=== PATIENT | male | born 1955 | race Caucasian/White ===

== ENCOUNTER 2016-10-01 21:23 | Emergency (ER) | payer OTHER ==
[~2016-10-01] VITALS: Ht 180.3 cm; Wt 122.5 kg
--- NOTE | ~2016-10-01 | EKG ---
PATIENT: SOLOMON INTERIANO UNIT #: [id number] Ventricular Rate: 64 BPM Atrial Rate: 64 BPM P-R Interval: 180 ms QRS Duration: 98 ms Q-T Interval: 444 ms QTC Calculation(Bezet): 458 ms P [place]: 25 degrees Calculated R [place]: -42 degrees Calculated T [place]: -16 degrees Diagnosis Line: Normal sinus rhythm Diagnosis Line: Left axis deviation Diagnosis Line: Left anterior fascicular block Diagnosis Line: Incomplete right bundle branch block Diagnosis Line: Abnormal ECG Diagnosis Line: When compared with ECG of 06-APR-2016 02:44, Diagnosis Line: No significant change was found Diagnosis Line: Confirmed by DEEPIKA MCNEIL MD ([id number]) on Diagnosis Line: 10/04/2016 8:05:26 PM INTERPRETING MD: AIDE
--- NOTE | ~2016-10-01 | CR72 ---
[facility] A Service of [facility] & [facility] RADIOLOGY TEXT RESULTS PATIENT: SOLOMON INTERIANO LOCATION: [facility] : 51 UNIT #: [id number] AGE: [address]: Tristian Barkley MD SEX: M ORDER DR: [id number] [facility] [address] [place], [place] [address] [id number] E MR#: [id number] Acc #: [id number] NAME: SOLOMON INTERIANO : 1955 SEX: M STUDY DATE/TIME: 10/01/2016 22:33 UNIT: [facility] ROOM: STUDY DESCRIPTION: CR Chest Single View Portable Attending Physician: Tristian Barkley Ordering Physician: Ed Doctor [id number] [facility] Primary Care Physician: Primary Care Physician No MEDICAL IMAGING REPORT This report is preliminary unless electronic signature is present EXAM Portable chest, 10/01 22:33 hours INDICATION Shortness of air and headache today. History of hypertension. FINDINGS AP portable chest is compared with 01/09/2016. Cardiac and mediastinal contours are normal. The lung volumes remain low. There are some chronic opacities in the bases compatible with scarring. There is slight increased opacity in the right base that could reflect acute atelectasis or infiltrate. Correlate clinically. No pneumothorax. IMPRESSION Chronically low lung volumes with chronic scarring in the bases. Slight increase in alveolar density at the right base could reflect a superimposed acute atelectasis or early pneumonia. Correlate clinically. Dictated by... Jose G An Jr., M.D. THIS IS AN ELECTRONICALLY VERIFIED REPORT Jose G An Jr., M.D. at 10/02/2016 8:49 PM CHELI/samantha TD: 10/02/2016 09:10 JOB #: [id number] MEDICAL IMAGING REPORT Page 1 of 1 COPY
--- NOTE | ~2016-10-01 | CT71 ---
[facility] A Service of [facility] RADIOLOGY TEXT RESULTS PATIENT: SOLOMON INTERIANO LOCATION: [facility] : 51 UNIT #: [id number] AGE: [address]: Tristian Barkley MD SEX: M ORDER DR: [id number] [facility] [address] [place], [place] [address] [id number] E MR#: [id number] Acc #: [id number] NAME: SOLOMON INTERIANO : 1955 SEX: M STUDY DATE/TIME: 10/01/2016 22:41 UNIT: [facility] ROOM: STUDY DESCRIPTION: CT Head Wo Contrast Attending Physician: Tristian Barkley Ordering Physician: Ed Doctor [id number] [facility] Primary Care Physician: Primary Care Physician No MEDICAL IMAGING REPORT This report is preliminary unless electronic signature is present EXAM Head CT, 10/01 at 22:41 hours INDICATION Right side headache for the last 2 days. History of hypertension. TECHNIQUE This CT exam was performed with one or more of the following radiation dose reduction techniques: automatic exposure control, adjustment of mA and/or kV according to patient size, and iterative reconstruction. FINDINGS Axial images were obtained from the base to the vertex without contrast. Comparison made with 10/29/2008. There is generalized atrophy. Ventricular size and configuration are within normal limits. No acute infarct or hemorrhage. No masses are seen. Atherosclerotic calcifications are present in the carotid siphons. No skull fractures. The visualized paranasal sinuses and mastoid air cells are clear. IMPRESSION Generalized atrophy. No acute findings. Dictated by... Jose G An Jr., M.D. THIS IS AN ELECTRONICALLY VERIFIED REPORT Jose G An Jr., M.D. at 10/02/2016 8:49 PM CHELI/samantha TD: 10/02/2016 09:21 JOB #: [id number] [facility] A Service of [facility] RADIOLOGY TEXT RESULTS PATIENT: SOLOMON INTERIANO LOCATION: [facility] : 51 UNIT #: [id number] AGE: [address]: Tristian Barkley MD SEX: M ORDER DR: MEDICAL IMAGING REPORT Page 1 of 1 COPY
[~2016-10-01 21:23] MED LIST: ADVAIR; ADVAIR 2501 DISK W/D PO; ADVAIR 500-501 EACH IH; ADVAIR 5001 DISK W/D; ADVAIR PO; ALBUTEROL17 G1 IH; ALBUTEROL17 GM; ALBUTEROL17 GM INH; ASPIRIN PO; AUGMENTIN PO; AZITHROMYCIN250 MG PO; BAYER ASPIRIN325 M1 PO; DARVOCET-N 1001 TAB PO; DELTASONE20 MG; DILANTIN; DILANTIN KAPSE100 MG PO; DILANTIN PO; DOXYCYCLINE HY100 M1 PO; DUONEB 2.5-0.5 M3 ML; DUONEB 2.5-0.5 M3 ML NEB; FLAGYL PO; GUAIFENESIN PO; LASIX PO; LEVAQUIN PO; LOVAZA1 G PO; MIRALAX255 GM PO; PHARMACY; PREDNISONE PO; PRO AIR 90 MCG PO; SINGULAIR PO; VITAMIN B-125000 MCG PO
[2016-10-01 22:32] LABS: BASOPHIL# 0.1 X10e3 (0-0.3); BASOPHIL% 0.8 % (0-2.5); DIFF IND NO; EOSINOPHIL# 0.2 X10e3 (0-0.7); EOSINOPHIL% 2.7 % (0.0-7.0); HEMATOCRIT 36.6 % (38.0-50.0); HEMOGLOBIN 12.3 gm/dL (13.0-16.0); LYMPHOCYTE# 1.3 X10e3 (1.0-3.5); LYMPHOCYTE% 20.7 % (17.0-45.0); MEAN CELL VOLUME 97.4 FL (83-96); MEAN CORPUSCULAR HEMOGLOBIN 32.8 PG (28-34); MEAN CORPUSCULAR HGB CONC 33.7 g/dL (30-36); MONOCYTE# 0.4 X10e3 (0-1.0); MONOCYTE% 7.1 % (3.0-12.0); NEUTROPHIL# 4.2 X10e3 (1.5-7.1); NEUTROPHIL% 68.7 % (40-75); PLATELET COUNT 234 X10e3 (140-420); RED BLOOD COUNT 3.76 X10e (3.90-5.60); RED CELL DISTRIBUTION WIDTH 13.8 % (11.0-15.5); WHITE BLOOD COUNT 6.1 X10e3 (4.0-10.5)
[2016-10-01 22:44] LABS: POC - CKMB 2.4 ng/mL (0.0-7.9); POC - TROPONIN <0.05 ng/mL (<=0.05)
[2016-10-01 23:00] LABS: ALBUMIN SERUM 4.1 g/dL (3.5-5.0); ALKALINE PHOSPHATASE 69 U/L (32-92); ALT (SGPT) 17 U/L (10-40); AST (SGOT) 22 U/L (10-42); BILIRUBIN,TOTAL 0.3 mg/dL (0.2-2.0); BLOOD UREA NITROGEN 22 mg/dL (9-23); BUN/CREATININE RATIO 16.92; CALCIUM SERUM 8.9 mg/dL (8.4-10.2); CARBON DIOXIDE 30 mmol/L (22-31); CHLORIDE 102 mmol/L (100-111); CREATININE SERUM 1.3 mg/dL (0.6-1.4); GLOM FILT RATE Estimated 58.5 mL/min (>60); GLUCOSE FASTING 104 mg/dL (70-110); POTASSIUM 3.4 mmol/L (3.5-5.1); PROTEIN TOTAL SERUM 7.4 g/dL (6.0-8.3); SODIUM 136 mmol/L (135-145)
[2016-10-01 23:02] LABS: BILIRUBIN, DIRECT <0.1 mg/dL (0.0-0.2); BILIRUBIN,INDIRECT 0.2 mg/dL (0.0-0.9)
[2016-12-06] MEDS ORDERED: LOPRESSOR PO (16:47)
[2016-12-06] MEDS ORDERED: PRAVACHOL PO (16:47)
[2016-12-06] MEDS ORDERED: LASIX20 MG PO (16:47)
[2016-12-06] MEDS ORDERED: ASPIRIN EC81 M1 PO (16:47)
[2016-12-06] MEDS ORDERED: SINGULAIR PO (16:48)
[2016-12-06] MEDS ORDERED: THEO-DUR300 MG PO (16:48)
[2016-12-06] MEDS ORDERED: TRIGLIDE160 M1 PO (16:48)
[2016-12-06] MEDS ORDERED: VITAMIN D250000 UNIT PO (16:50)
[2016-12-06] MEDS ORDERED: FLONASE ALLERG9.9 ML (16:50)
[2016-12-06] MEDS ORDERED: ATROVENT HFA12.9 G1 INH (16:50)
[2016-12-06] MEDS ORDERED: ALBUTEROL17 GM INH (16:51)
[2016-12-06] MEDS ORDERED: BREO ELLIPTA 21 EACH INH (16:51)
== END 2016-10-02 00:25 | disposition home or self-care (01) ==
LOC: CED 21:23
PROVIDERS: Emergency Medicine
DX: J44.1 Chronic obstructive pulmonary disease with (acute) exacerbation (principal); I10 Essential (primary) hypertension; Z79.899 Other long term (current) drug therapy; Z79.82 Long term (current) use of aspirin
CPT/HCPCS: 36415; 70450; 71010; 80048; 80076; 82553; 83880; 84484; 85025; 93005; 94640; 96374; 99285; J2930

== ENCOUNTER 2016-11-18 13:53 | Emergency (ER) | payer OTHER ==
[~2016-11-18] VITALS: Ht 180.3 cm; Wt 127.9 kg
--- NOTE | ~2016-11-18 | EKG ---
PATIENT: SOLOMON INTERIANO UNIT #: [id number] Ventricular Rate: 95 BPM Atrial Rate: 95 BPM P-R Interval: 196 ms QRS Duration: 102 ms Q-T Interval: 364 ms QTC Calculation(Bezet): 457 ms P [place]: 28 degrees Calculated R [place]: -45 degrees Calculated T [place]: 33 degrees Diagnosis Line: Normal sinus rhythm Diagnosis Line: Left anterior fascicular block Diagnosis Line: Moderate voltage criteria for LVH, may be normal Diagnosis Line: variant Diagnosis Line: Abnormal ECG Diagnosis Line: When compared with ECG of 01-OCT-2016 22:21, Diagnosis Line: Vent. rate has increased BY 31 BPM Diagnosis Line: Incomplete right bundle branch block is no longer Diagnosis Line: Present Diagnosis Line: Criteria for Septal infarct are no longer Present Diagnosis Line: Confirmed by TAMARA LEYVA MD ([id number]) on Diagnosis Line: 11/19/2016 10:53:01 AM INTERPRETING MD: GORDON ALEJO
--- NOTE | ~2016-11-18 | CR72 ---
[facility] A Service of [facility] RADIOLOGY TEXT RESULTS PATIENT: SOLOMON INTERIANO LOCATION: [facility] : 51 UNIT #: [id number] AGE: [address]: Jose G Martinez MD SEX: M ORDER DR: [id number] [facility] [address] [place], [place] [address] [id number] E MR#: [id number] Acc #: [id number] NAME: SOLOMON INTERIANO : 1955 SEX: M STUDY DATE/TIME: 11/18/2016 14:34 UNIT: [facility] ROOM: STUDY DESCRIPTION: CR Chest Single View Portable Attending Physician: Jose G Martinez M.D. Ordering Physician: Jose G Martinez M.D. Primary Care Physician: No Primary Care Physician MEDICAL IMAGING REPORT This report is preliminary unless electronic signature is present EXAM Portable chest. INDICATIONS Shortness of air. Symptoms began today. COMPARISON 10/01/2016 FINDINGS This portable view of the chest shows low lung volumes with minimal subsegmental atelectasis in both lung bases. Heart size normal and the bones are unremarkable. Dictated by... Venkat Pacheco M.D. THIS IS AN ELECTRONICALLY VERIFIED REPORT Venkat Pacheco M.D. at 11/18/2016 10:19 PM JACK/katarzyna TD: 11/18/2016 20:05 JOB #: [id number] MEDICAL IMAGING REPORT Page 1 of 1 COPY
[2016-11-18 14:46] LABS: BASOPHIL% 0.4 % (0-2.5); DIFF IND NO; EOSINOPHIL% 0.1 % (0.0-7.0); HEMATOCRIT 37.1 % (38.0-50.0); HEMOGLOBIN 12.5 gm/dL (13.0-16.0); LYMPHOCYTE# 0.7 X10e3 (1.0-3.5); LYMPHOCYTE% 7.8 % (17.0-45.0); MEAN CELL VOLUME 97.6 FL (83-96); MEAN CORPUSCULAR HEMOGLOBIN 32.9 PG (28-34); MEAN CORPUSCULAR HGB CONC 33.7 g/dL (30-36); MEAN PLATELET VOLUME 7.8 FL (6.5-11.5); MONOCYTE# 0.4 X10e3 (0-1.0); MONOCYTE% 4.1 % (3.0-12.0); NEUTROPHIL# 7.7 X10e3 (1.5-7.1); NEUTROPHIL% 87.6 % (40-75); PLATELET COUNT 224 X10e3 (140-420); RED CELL DISTRIBUTION WIDTH 13.7 % (11.0-15.5); WHITE BLOOD COUNT 8.8 X10e3 (4.0-10.5)
[2016-11-18 14:57] LABS: PARTIAL THROMBOPLASTIN TIME 25.4 SECONDS (23.5-31.3); PROTHROMBIN TIME (PATIENT) 11.3 SECONDS (10.0-11.7)
[2016-11-18 15:02] LABS: ALBUMIN SERUM 4.1 g/dL (3.5-5.0); ALKALINE PHOSPHATASE 55 U/L (32-92); ALT (SGPT) 17 U/L (10-40); AST (SGOT) 19 U/L (10-42); BILIRUBIN,TOTAL 0.2 mg/dL (0.2-2.0); BLOOD UREA NITROGEN 24 mg/dL (9-23); CALCIUM SERUM 9.2 mg/dL (8.4-10.2); CARBON DIOXIDE 29 mmol/L (22-31); CHLORIDE 102 mmol/L (100-111); CREATININE SERUM 1.2 mg/dL (0.6-1.4); GLOM FILT RATE Estimated 64.4 mL/min (>60); GLUCOSE FASTING 131 mg/dL (70-110); POTASSIUM 3.9 mmol/L (3.5-5.1); PROTEIN TOTAL SERUM 7.6 g/dL (6.0-8.3); SODIUM 139 mmol/L (135-145)
[2016-11-18 15:03] LABS: BILIRUBIN, DIRECT <0.1 mg/dL (0.0-0.2); BILIRUBIN,INDIRECT 0.1 mg/dL (0.0-0.9)
[2016-11-18 15:15] LABS: POC - CKMB 1.8 ng/mL (0.0-7.9); POC - TROPONIN <0.05 ng/mL (<=0.05)
[2016-12-06] MEDS ORDERED: PRAVACHOL PO (16:47)
[2016-12-06] MEDS ORDERED: LASIX20 MG PO (16:47)
[2016-12-06] MEDS ORDERED: LOPRESSOR PO (16:47)
[2016-12-06] MEDS ORDERED: ASPIRIN EC81 M1 PO (16:47)
[2016-12-06] MEDS ORDERED: TRIGLIDE160 M1 PO (16:48)
[2016-12-06] MEDS ORDERED: THEO-DUR300 MG PO (16:48)
[2016-12-06] MEDS ORDERED: SINGULAIR PO (16:48)
[2016-12-06] MEDS ORDERED: VITAMIN D250000 UNIT PO (16:50)
[2016-12-06] MEDS ORDERED: FLONASE ALLERG9.9 ML (16:50)
[2016-12-06] MEDS ORDERED: ATROVENT HFA12.9 G1 INH (16:50)
[2016-12-06] MEDS ORDERED: BREO ELLIPTA 21 EACH INH (16:51)
[2016-12-06] MEDS ORDERED: ALBUTEROL17 GM INH (16:51)
== END 2016-11-18 17:28 | disposition home or self-care (01) ==
LOC: CED 13:53
PROVIDERS: Emergency Medicine
DX: R00.2 Palpitations (principal); J44.9 Chronic obstructive pulmonary disease, unspecified; Z79.82 Long term (current) use of aspirin; Z79.2 Long term (current) use of antibiotics; Z79.899 Other long term (current) drug therapy
CPT/HCPCS: 36415; 71010; 80048; 80076; 82553; 83735; 83880; 84484; 85025; 85610; 85730; 93005; 99285